=== PATIENT | female | born 2005 | race Caucasian/White ===

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

== ENCOUNTER 2024-08-29 12:56 | Inpatient (IN) | payer OTHER ==
[~2024-08-29] VITALS: Ht 162.6 cm; Wt 81.8 kg
[2024-08-29] VITALS (21 sets, daily range): BP systolic 104–126; BP diastolic 57–87
[~2024-08-29 12:56] MED LIST changes: +NAPR500 PO; +Norco 5-325 Ta1 EACH PO
[2024-08-29] MEDS ORDERED: CeFAZolin Sodium 2,000 MG in NS 100 ML IV SCH ×2 (13:05→22:00)
[2024-08-29] MEDS ORDERED: Metoclopramide HCl 5MG / ML 2ML Vial IV ONE (13:05)
[2024-08-29] MEDS ORDERED: Citric Acid/Sodium Citrate 30 ML BTL PO SCH (13:05)
[2024-08-29] MEDS ORDERED: Lactated Ringer's 1,000 ML IV SCH ×3 (13:05→17:15)
[2024-08-29 13:44] LABS: BASOPHILS ABSOLUTE AUTO 0.03 K/mm3 (0.00-0.23); BASOPHILS PERCENT AUTO 0 % (0-2); EOSINOPHILS ABSOLUTE AUTO 0.01 K/mm3 (0.00-0.68); EOSINOPHILS PERCENT AUTO 0 % (0-6); Hematocrit 39.3 % (33.0-51.0); Hemoglobin 13.3 g/dL (11.5-16.0); IMMATURE GRAN ABSOLUTE AUTO 0.05 K/mm3 (0.00-0.10); IMMATURE GRAN PERCENT AUTO 1 % (0-1); LYMPHOCYTES ABSOLUTE AUTO 1.78 K/mm3 (0.84-5.20); LYMPHOCYTES PERCENT AUTO 19 % (21-46); MONOCYTES PERCENT AUTO 4 % (4-13); Mean Corpuscular HGB Conc 33.8 g/dL (31.5-36.5); Mean Corpuscular Volume 92 fL (80-100); Mean Platelet Volume 9.9 fL (9.1-12.4); NEUTROPHILS ABSOLUTE AUTO 7.09 K/mm3 (1.96-9.15); NEUTROPHILS PERCENT AUTO 76 % (41-73); Platelet Count 193 K/mm3 (150-400); RDW Standard Deviation 42.8 fL (35.1-46.3); Red Blood Cell Count 4.29 M/mm3 (3.80-5.20); White Blood Cell Count 9.36 K/mm3 (4.00-11.30)
[2024-08-29] MEDS ORDERED: FentaNYL Citrate 50 MCG/ML 2 ML Injection ONE (14:31)
--- NOTE | 2024-08-29 16:28 | NUR ---
08/29/24 1628 Jessica Veloz SECTION OF BABY GIRL WITH SPON CRY AT 1538, CLEAR FLUID WITH AROM, 3425 GRAMS (7LB 9 OZ), HEAD 13.25 IN, CHEST 13.5 IN, LENGTH 19.5IN 05/28
[2024-08-29 16:29] LABS: PCO2 Cord - Arterial 61.8 mmHg (40-50); PO2 Cord - Arterial < 14.0 mmHg (16-20); pH Cord - Arterial 7.27 (7.28-7.35)
[2024-08-29 16:31] LABS: PO2 Cord - Venous 21.6 mmHg (28-32); pH Umbilical Cord - Venous 7.34 (7.26-7.35)
[2024-08-29] MEDS ORDERED: HYDROmorphone HCl/Pf 1MG SYR IV PRN ×2 (16:45)
[2024-08-29] MEDS ORDERED: Ondansetron HCl 2 MG / ML 2ML Vial IV PRN ×2 (16:45→17:05)
[2024-08-29] MEDS ORDERED: Labetalol HCL 5 MG/ML 4ML Injection (Single Dose) IV PRN (16:45)
[2024-08-29] MEDS ORDERED: FentaNYL Citrate 50 MCG/ML 2 ML Injection IV PRN ×2 (16:45)
[2024-08-29] MEDS ORDERED: ePHEDrine Sulfate 50 MG/ML 1ML Injection IV PRN (16:50)
[2024-08-29] MEDS ORDERED: Atropine Sulfate 0.1 MG/ML 10ML SYR IV PRN (16:50)
[2024-08-29] MEDS ORDERED: OxyCODONE 5 mg/Acetamin 325 mg TABLET PO PRN (17:05)
[2024-08-29] MEDS ORDERED: Promethazine HCl 25 MG Tab PO PRN (17:05)
[2024-08-29] MEDS ORDERED: Simethicone 80 MG Chew PO PRN (17:10)
[2024-08-29] MEDS ORDERED: OXYTOCIN/RINGER'S LACTATE 500 ML IV SCH (17:10)
[2024-08-29] MEDS ORDERED: Promethazine HCl 12.5 MG Supp PR PRN (17:10)
[2024-08-29] MEDS ORDERED: Acetaminophen 500 MG Tab PO PRN (17:10)
[2024-08-29] MEDS ORDERED: Promethazine HCl 25 MG Supp PR PRN (17:15)
[2024-08-29] MEDS ORDERED: Lanolin Cream TOP PRN (17:15)
[2024-08-29] MEDS ORDERED: Methylergonovine Maleate 0.2MG / ML 1ML Amp IM PRN (17:15)
[2024-08-29] MEDS ORDERED: Misoprostol 200 MCG Tab PR PRN (17:15)
[2024-08-29] MEDS ORDERED: Magnesium Hydroxide Conc 10 ML UDC PO PRN (17:15)
[2024-08-29] MEDS ORDERED: Morphine Sulfate 4 MG/1 ML Injection IV PRN (17:20)
[2024-08-29] MEDS ORDERED: Tranexamic Acid 100 ML IV PRN (17:25)
[2024-08-29] MEDS ORDERED: Ketorolac Tromethamine 30mg Vial IV ONE (17:45)
[2024-08-29] MEDS ORDERED: Ketorolac Tromethamine 30mg Vial IV SCH (18:00)
[2024-08-29] MEDS ORDERED: Docusate Sodium 100 MG Cap PO SCH (21:00)
[2024-08-30] VITALS (8 sets, daily range): BP systolic 111–131; BP diastolic 61–78
[2024-08-30] MEDS ORDERED: Naproxen 500 MG Tab PO PRN (06:00)
[2024-08-30 06:24] LABS: BASOPHILS ABSOLUTE AUTO 0.02 K/mm3 (0.00-0.23); BASOPHILS PERCENT AUTO 0 % (0-2); EOSINOPHILS ABSOLUTE AUTO 0.05 K/mm3 (0.00-0.68); EOSINOPHILS PERCENT AUTO 1 % (0-6); Hematocrit 33.1 % (33.0-51.0); Hemoglobin 11.3 g/dL (11.5-16.0); IMMATURE GRAN ABSOLUTE AUTO 0.03 K/mm3 (0.00-0.10); IMMATURE GRAN PERCENT AUTO 0 % (0-1); LYMPHOCYTES PERCENT AUTO 17 % (21-46); MONOCYTES ABSOLUTE AUTO 0.61 K/mm3 (0.16-1.47); MONOCYTES PERCENT AUTO 7 % (4-13); Mean Corpuscular HGB 31.2 pg (26.0-34.0); Mean Corpuscular HGB Conc 34.1 g/dL (31.5-36.5); Mean Corpuscular Volume 91 fL (80-100); Mean Platelet Volume 9.9 fL (9.1-12.4); NEUTROPHILS ABSOLUTE AUTO 6.55 K/mm3 (1.96-9.15); NEUTROPHILS PERCENT AUTO 75 % (41-73); Platelet Count 151 K/mm3 (150-400); RDW Coefficient Variation 13.1 % (11.7-14.2); RDW Standard Deviation 42.9 fL (35.1-46.3); Red Blood Cell Count 3.62 M/mm3 (3.80-5.20); White Blood Cell Count 8.76 K/mm3 (4.00-11.30)
[2024-08-30] MEDS ORDERED: Prenatal Vit/FE Fumarate/FA 1 Tab PO SCH (09:00)
--- NOTE | 2024-08-30 18:23 | NUR ---
STABLE PATIENT HAVING GOOD PAIN CONTROL WITH PO MEDS, AMBULATED DOWN HALLS EARLIER IN SHIFT, C/O SOME GAS PAINS NOW, ENCOURAGED PT TO AMBULATE AGAIN 1 HOUR AFTER TAKING PAIN MEDICATIONS
--- NOTE | 2024-08-30 18:28 | NUR ---
PATIENT ASKING ABOUT NIPPLE MEASUREMENTS FOR HER BREAST PUMP, PT STATES JAM AT [facility] TOLD HER A SIZE AND SHE CANT REMEMBER, JAM'S BUSINESS CARD GIVEN TO PT INSTRUCTED HER TO CALL [facility] IN THE MORNING AND SPEAK WITH JAM ALSO ADVISED HER TO SET UP LC APPOINTMENT WITH JAM TO GO OVER HER NEW BREAST PUMP
[2024-08-31 03:41] VITALS: BP 131/84
[2024-08-31 07:13] VITALS: BP 129/68
[2024-08-31] MEDS ORDERED: Percocet 5-3251 EACH PO (12:37)
[2024-08-31] MEDS ORDERED: DOCU100 PO (12:37)
[2024-08-31] MEDS ORDERED: IBUP400 PO (12:37)
== END 2024-08-31 13:30 | disposition home or self-care (01) | DRG 788 ==
LOC: BC 12:56
PROVIDERS: ADMIT Obstetrics & Gynecology
PROC: 10D00Z1 Extraction of Products of Conception, Low, Open Approach (ICD-10-PCS; principal; 2024-08-29 15:00)
DX: O34.211 Maternal care for low transverse scar from previous cesarean delivery (principal); Z3A.39 39 weeks gestation of pregnancy; Z37.0 Single live birth; O69.81X0 Labor and delivery complicated by cord around neck, without compression, not applicable or unspecified; Z88.1 Allergy status to other antibiotic agents
CPT/HCPCS: 36415; 82803; 85025; 86850; 86900; 86901; A9270; J0690; J1885; J3010; J7120

== ENCOUNTER → 2025-08-13 | Outpatient (CLI) | payer OTHER ==
[~2025-08-13] MED LIST changes: +DOCU100 PO; +IBUP400 PO; +Percocet 5-3251 EACH PO
[2025-08-13 14:00] LABS: BASOPHILS ABSOLUTE AUTO 0.02 K/mm3 (0.00-0.23); BASOPHILS PERCENT AUTO 0 % (0-2); EOSINOPHILS ABSOLUTE AUTO 0.04 K/mm3 (0.00-0.68); EOSINOPHILS PERCENT AUTO 1 % (0-6); Hematocrit 40.9 % (33.0-51.0); Hemoglobin 14.2 g/dL (11.5-16.0); IMMATURE GRAN ABSOLUTE AUTO 0.00 K/mm3 (0.00-0.10); IMMATURE GRAN PERCENT AUTO 0 % (0-1); LYMPHOCYTES ABSOLUTE AUTO 1.63 K/mm3 (0.84-5.20); LYMPHOCYTES PERCENT AUTO 36 % (21-46); MONOCYTES ABSOLUTE AUTO 0.21 K/mm3 (0.16-1.47); MONOCYTES PERCENT AUTO 5 % (4-13); Mean Corpuscular HGB Conc 34.7 g/dL (31.5-36.5); Mean Corpuscular Volume 88 fL (80-100); NEUTROPHILS ABSOLUTE AUTO 2.66 K/mm3 (1.96-9.15); NEUTROPHILS PERCENT AUTO 58 % (41-73); NRBC ABSOLUTE 0.00 K/mm3 (0.00-0.02); NRBC Auto 0.0 /100 WBC (0.0-0.2); Platelet Count 222 K/mm3 (150-400); RDW Coefficient Variation 12.0 % (11.7-14.2); RDW Standard Deviation 38.5 fL (35.1-46.3)
[2025-08-13 14:20] LABS: Alanine Aminotransfer (ALT/SGP 18.0 U/L (12-78); Albumin, Blood 4.1 g/dL (3.4-5.0); Albumin/Globulin Ratio 1.2 (0.8-1.8); Anion Gap 13.0 mmol/L (3-11); Aspartate Aminotrans (AST/SGOT 17.0 U/L (12-37); Bilirubin, Total 0.8 mg/dL (0.1-1.0); Blood Urea Nitrogen 11.0 mg/dL (8-24); CO2, Blood 29.0 mmol/L (21-32); Calcium, Blood 9.7 mg/dL (8.5-10.1); Chloride, Blood 103.0 mmol/L (98-108); Creatinine, Blood 0.84 mg/dL (0.40-1.00); Globulin, Blood 3.4 g/dL (2.2-4.0); Glucose, Blood 99.0 mg/dL (70-99); Potassium, Blood 3.8 mmol/L (3.5-5.5); Sodium, Blood 141.0 mmol/L (136-145); Thyroid Stimulating Hormone 1.18 uIU/mL (0.360-4.800); Total Protein, Blood 7.5 g/dL (6.4-8.2)
== END | disposition home or self-care (01) ==
LOC: LAB SHORT 13:55 → LAB 13:55
PROVIDERS: Physician Assistant
DX: R53.83 Other fatigue (principal); R10.9 Unspecified abdominal pain
CPT/HCPCS: 80053; 84443; 85025